=== PATIENT | male | born 1935 | race Native Hawaiian/Other Pacific Islander ===

== ENCOUNTER 2019-11-09 22:24 | Emergency (ER) | payer OTHER ==
[~2019-11-09] VITALS: Ht 185.4 cm; Wt 99.8 kg
[2019-11-09 22:55] LABS: PLATELET COUNT 235 K/uL (142-355)
[2019-11-09 23:16] LABS: POTASSIUM 3.9 mmol/L (3.6-5.2)
[2019-11-09 23:55] VITALS: BP 145/86; TEMP 98.2
[2019-11-10] MEDS ORDERED: LOPERAMIDE2 MG PO (00:47)
[2019-11-10] MEDS ORDERED: TYLENOL325 MG PO (00:47)
[2019-11-10] MEDS ORDERED: MAGNSUS68 PO (00:49)
[2019-11-10] MEDS ORDERED: ACID CONTROL MA20 MG PO (00:49)
[2019-11-10] MEDS ORDERED: INSUINJP SC (00:50)
[2019-11-10] MEDS ORDERED: LISI20TA11 PO (00:50)
[2019-11-10] MEDS ORDERED: INSUINJ20 SC (00:51)
[2019-11-10] MEDS ORDERED: METOPROLOL25 M1 PO (00:51)
[2019-11-10] MEDS ORDERED: PRAVACHOL20 MG PO (00:54)
[2019-11-10] MEDS ORDERED: NOVOLIN R100 UNIT/1 IM (00:54)
[2019-11-10] MEDS ORDERED: ASPIRIN 81 LOW81 MG PO (00:55)
[2019-11-10] MEDS ORDERED: ALLO300T23 PO (00:55)
[2019-11-10] MEDS ORDERED: PAXIL20 MG PO (00:56)
== END 2019-11-09 23:55 | disposition other institution (70) ==
LOC: ED 22:24
PROVIDERS: Emergency Medicine
DX: R46.89 Other symptoms and signs involving appearance and behavior (principal); R94.5 Abnormal results of liver function studies; R00.1 Bradycardia, unspecified; I45.19 Other right bundle-branch block; Z04.6 Encounter for general psychiatric examination, requested by authority
CPT/HCPCS: 36415; 80053; 81000; 85027; 93005; 99283

== ENCOUNTER 2020-06-08 02:56 | Emergency (ER) | payer OTHER ==
[~2020-06-08] VITALS: Ht 185.4 cm; Wt 85.3 kg
[~2020-06-08 02:56] MED LIST: ACID CONTROL MA20 MG PO; ALLO100T22 PO; ALLO300T23 PO; ASPIRIN 81 LOW81 MG PO; CHOL100034 PO; CYAN10009 IM; DONE5TAB PO; ESCI10TA PO; FURO20TA67 PO; INSUINJ20 SC; INSUINJP SC; LISI20TA11 PO; LOPERAMIDE2 MG PO; MAGNSUS68 PO; MEMA5TAB PO; METOPROLOL25 M1 PO; NOVOLIN R100 UNIT/1 IM; PAXIL20 MG PO; POTA20TA4 PO; PRAVACHOL20 MG PO; RISP0.25 PO; TYLENOL325 MG PO
[2020-06-08 03:51] LABS: PLATELET COUNT 235 K/uL (142-355)
[2020-06-08 03:55] LABS: POTASSIUM 2.8 mmol/L (3.6-5.2)
[2020-06-08 04:34] VITALS: BP 122/65; TEMP 98.1
[2020-06-08] MEDS ORDERED: AMLODIPINE BESYLATE PO (04:56)
[2020-06-08] MEDS ORDERED: CYAN10009 IM ×2 (11:23→11:29)
[2020-06-08] MEDS ORDERED: MEMA5TAB PO (11:26)
[2020-06-08] MEDS ORDERED: ESCI10TA PO (11:29)
[2020-06-08] MEDS ORDERED: DONE5TAB PO ×2 (11:29→11:48)
[2020-06-08] MEDS ORDERED: LEXAPRO20 MG PO (11:47)
[2020-06-08] MEDS ORDERED: ACID CONTROL20 MG PO (11:50)
== END 2020-06-08 04:34 | disposition still patient (30) ==
LOC: ED 02:56
PROVIDERS: Emergency Medicine Emergency Medical Services
DX: R46.89 Other symptoms and signs involving appearance and behavior (principal); Z11.59 Encounter for screening for other viral diseases; Z04.6 Encounter for general psychiatric examination, requested by authority; I10 Essential (primary) hypertension
CPT/HCPCS: 36415; 80053; 85027; 87635; 93005; 99285; U0003

== ENCOUNTER 2020-12-31 00:25 | Emergency (ER) | payer OTHER ==
[~2020-12-31] VITALS: Ht 177.8 cm; Wt 71.2 kg
[2020-12-31 00:25] VITALS: BP 144/61; TEMP 97.5
[~2020-12-31 00:25] MED LIST changes: +ACID CONTROL20 MG PO; +AMLODIPINE BESYLATE PO; +LEXAPRO20 MG PO; +OLAN2.5T2 PO
[2020-12-31 01:05] LABS: PLATELET COUNT 307 K/uL (142-355)
[2020-12-31 01:17] LABS: POTASSIUM 4.1 mmol/L (3.6-5.2)
[2020-12-31] MEDS ORDERED: DONE5TAB PO (03:22)
[2020-12-31] MEDS ORDERED: CYPROHEPTADINE H4 MG PO (03:23)
[2020-12-31] MEDS ORDERED: IMODIUM A-D2 MG PO (03:26)
[2020-12-31] MEDS ORDERED: MIRTAZAPINE7.5 MG PO (03:27)
[2020-12-31] MEDS ORDERED: TRAMADOL HYDROC50 MG PO ×2 (03:29→03:32)
[2020-12-31] MEDS ORDERED: VITAMIN B-121000 MC2 PO (03:34)
[2020-12-31] MEDS ORDERED: NOVOLIN R100 UNIT/1 SC (03:50)
[2021-01-17] MEDS ORDERED: CYAN10009 IM (09:18)
[2021-01-17] MEDS ORDERED: OLAN2.5T2 PO (09:19)
[2021-01-17] MEDS ORDERED: REMERON 15MG TAB PO (09:19)
[2021-01-17] MEDS ORDERED: MAGNSUS68 PO (09:19)
[2021-01-17] MEDS ORDERED: MEMA5TAB PO (09:19)
[2021-01-17] MEDS ORDERED: INSU100P SC (09:20)
[2021-01-17] MEDS ORDERED: INSU300I SC (09:20)
[2021-01-17] MEDS ORDERED: LOPE2CAP17 PO (09:20)
[2021-01-17] MEDS ORDERED: ESCI10TA PO (09:21)
[2021-01-17] MEDS ORDERED: FAMOTIDINE20 MG PO (09:21)
[2021-01-17] MEDS ORDERED: FOLI1TAB26 PO (09:21)
[2021-01-17] MEDS ORDERED: CHOL100034 PO (09:22)
[2021-01-17] MEDS ORDERED: ASPI81TA4 PO (09:22)
[2021-01-17] MEDS ORDERED: ALLO100T22 PO (09:22)
[2021-01-17] MEDS ORDERED: ACET-206 PO (09:22)
== END 2020-12-31 02:18 | disposition other institution (70) ==
LOC: ED 00:25
PROVIDERS: Family Medicine
DX: R46.89 Other symptoms and signs involving appearance and behavior (principal); Z11.59 Encounter for screening for other viral diseases; Z04.6 Encounter for general psychiatric examination, requested by authority; I10 Essential (primary) hypertension
CPT/HCPCS: 36415; 80053; 81000; 85027; 87635; 93005; 99283; U0003

== ENCOUNTER 2022-06-04 21:59 | Emergency (ER) | payer OTHER ==
[~2022-06-04] VITALS: Ht 177.8 cm; Wt 81.6 kg
[~2022-06-04 21:59] MED LIST changes: +ACET-206 PO; +ASPI81TA4 PO; +CYPROHEPTADINE H4 MG PO; +FAMOTIDINE20 MG PO; +FOLI1TAB26 PO; +IMODIUM A-D2 MG PO; +INSU100P SC; +INSU300I SC; +LOPE2CAP17 PO; +MIRTAZAPINE7.5 MG PO; +NOVOLIN R100 UNIT/1 SC; +REMERON 15MG TAB PO; +TRAMADOL HYDROC50 MG PO; +VITAMIN B-121000 MC2 PO
[2022-06-04 23:01] LABS: PLATELET COUNT 228 K/uL (142-355)
[2022-06-04 23:10] LABS: POTASSIUM 3.2 mmol/L (3.6-5.2)
[2022-06-05 00:16] VITALS: BP 117/76; TEMP 97.8
[2022-06-05] MEDS ORDERED: TYLENOL325 MG PO (04:17)
[2022-06-05] MEDS ORDERED: VITAMIN D35000 UNI6 PO (04:18)
[2022-06-05] MEDS ORDERED: PHYSICIANS1000 MCG/M IM (04:19)
[2022-06-05] MEDS ORDERED: ELIQUIS5 MG PO (04:20)
[2022-06-05] MEDS ORDERED: DIVA125C PO (04:20)
[2022-06-05] MEDS ORDERED: CORRECTOL100 MG PO (04:23)
[2022-06-05] MEDS ORDERED: HALOPERIDOL2 MG PO (04:26)
[2022-06-05] MEDS ORDERED: LEXAPRO10 MG PO (04:27)
[2022-06-05] MEDS ORDERED: MEMA5TAB PO (04:30)
[2022-06-05] MEDS ORDERED: OLANZAPINE10 M2 PO (04:31)
[2022-06-05] MEDS ORDERED: TAMSULOSIN0.4 MG PO (04:32)
[2022-06-05] MEDS ORDERED: EQ NATURAL LAX8.6 MG PO (04:32)
[2022-06-05] MEDS ORDERED: TRAZ50TA36 PO (04:33)
== END 2022-06-05 00:16 | disposition still patient (30) ==
LOC: ED 21:59
PROVIDERS: Emergency Medicine Emergency Medical Services
DX: F03.91 Unspecified dementia, unspecified severity, with behavioral disturbance (principal); E87.6 Hypokalemia; Z11.52 Encounter for screening for COVID-19; Z04.6 Encounter for general psychiatric examination, requested by authority
CPT/HCPCS: 36415; 80053; 85027; 87635; 93005; 99283; U0003